=== PATIENT | male | born 1960 | race African-American/Black ===

== ENCOUNTER 2017-02-20 08:12 | Day surgery (SDC) | payer OTHER ==
[2017-02-20 08:37] VITALS: BMI 45.8
[2017-02-20] MEDS ORDERED: LIDOCAINE HCL 2% JELLY (30 ML/TUBE) MM ONE (08:50)
[2017-02-20 09:14] VITALS: TEMP 98.1
[2017-02-20] MEDS ORDERED: PROPOFOL 20 ML ONE ×3 (09:50)
[2017-02-20] MEDS ORDERED: LIDOCAINE HCL/PF 2% SDV 5ML VIAL ONE (09:50)
[2017-02-20 10:08] VITALS: BP 157/74; PULSE 72
--- NOTE | 2017-02-21 16:17 | PATH ---
Surgical Pathology Report Patient Name: ALEX MUSE [facility]. Rec. #: [id number] /Age/Gender: 1960 (Age: 56) / M Account: [id number] Location: [facility]-ENDOSCOPY Taken: 02/20/2017 Received: 02/20/2017 Reported: 02/21/2017 Physicians: Javier Richardson M.D. Specimen(s) Received A: BX STOMACH B: BX MID ESOPHAGUS Clinical History Dysphagia Stomach mass Final Diagnosis A. STOMACH, MASS, BIOPSY: MILD TO MODERATE CHRONIC ACTIVE GASTRITIS WITH REACTIVE GASTROPATHY. NO ADENOMATOUS CHANGE OR CARCINOMA IDENTIFIED. SCANT BENIGN SMOOTH MUSCLE PRESENT AT DEEP ASPECT OF SPECIMEN, BUT NO DEFINITE SUBMUCOSAL TISSUE IDENTIFIED. IMMUNOSTAIN FOR H. PYLORI IS NEGATIVE. B. MID ESOPHAGUS, BIOPSY: SQUAMOUS EPITHELIUM WITH PAPILLOMATOSIS SUGGESTIVE OF REFLUX ESOPHAGITIS. NO EOSINOPHILIC ESOPHAGITIS IDENTIFIED. Electronically Signed Sree Jones M.D. Gross Description A. Received in formalin, labeled "biopsy mass in stomach (submucosal, 1 cm in diameter)," are 4 fernandez, irregular portions of soft tissue ranging from 0.1-0.4 cm. in greatest dimension. The specimens are submitted in toto in one cassette. B. Received in formalin, labeled "biopsy midesophagus" are 2 fernandez, irregular portions of soft tissue measuring 0.4 and 0.7 cm. in greatest dimension. The specimens are submitted in toto in one cassette. 02/20/2017 saudi02/20/2017
== END 2017-02-20 10:20 | disposition home or self-care (01) ==
LOC: JASU-ENDO 08:12
PROVIDERS: ATTEND Internal Medicine Gastroenterology
PROC: 0DB68ZX Excision of Stomach, Via Natural or Artificial Opening Endoscopic, Diagnostic (ICD-10-PCS; principal; 2017-02-20 09:00)
DX: K29.50 Unspecified chronic gastritis without bleeding (principal)
CPT/HCPCS: 88305-TC; 88342-TC